=== PATIENT | female | born 2000 | race Hispanic/Latino ===

== ENCOUNTER 2022-09-22 06:41 | Inpatient (IN) | payer MEDICAID, OTHER, SELFPAY ==
[2022-09-22] MEDS ORDERED: Fentanyl 100 MCG/2 ML VIAL SLOW IVP PRN (07:28)
[2022-09-22] MEDS ORDERED: HYDROcodone/Acetaminophen 5/325 mg Tablet PO PRN ×2 (07:28)
[2022-09-22] MEDS ORDERED: Lidocaine 1% (PF) 30 ML VIAL SC PRN (07:28)
[2022-09-22] MEDS ORDERED: Promethazine HCl 25 MG/ML VIAL IM PRN ×2 (07:28→10:42)
[2022-09-22] MEDS ORDERED: Ondansetron PF 4 MG/2 ML Vial IVP PRN ×3 (07:28→22:20)
[2022-09-22] MEDS ORDERED: Diphenoxylate HCl/Atropine Tablet PO PRN ×2 (07:28)
[2022-09-22] MEDS ORDERED: Acetaminophen 500 MG TAB PO PRN (07:28)
[2022-09-22] MEDS ORDERED: Ibuprofen 800 MG TAB PO PRN (07:28)
[2022-09-22] MEDS ORDERED: Carboprost 250 MCG/ML AMP IM PRN (07:28)
[2022-09-22] MEDS ORDERED: Tranexamic Acid 1,000 MG/10 ML VIAL IVP PRN (07:28)
[2022-09-22] MEDS ORDERED: Misoprostol 200 MCG TAB PR PRN (07:28)
[2022-09-22] MEDS ORDERED: hydrALAZINE 20 MG/ML VIAL SLOW IVP PRN ×2 (07:28→22:20)
[2022-09-22] MEDS ORDERED: Methylergonovine 0.2 MG/ML VIAL IM PRN (07:28)
[2022-09-22] MEDS ORDERED: Lactated Ringer's 1,000 ML IV SCH (07:30)
[2022-09-22] MEDS ORDERED: NS w/ Oxytocin 30 units 500 ML IV SCH (07:30)
[2022-09-22] MEDS ORDERED: Misoprostol 100 MCG TAB VAG SCH (07:30)
[2022-09-22 07:46] VITALS: BMI 32.2
[2022-09-22] MEDS ORDERED: Bupivacaine 0.25% HCL 30 ML VIAL ONE (08:00)
[2022-09-22 08:10] LABS: Hemoglobin 10.9 g/dL (12.0-15.5); Mean Corpuscular HGB CONC 31.9 g/dL (32.0-36.0); Mean Corpuscular Hemoglobin 24.8 pg (27.0-33.0); Mean Corpuscular Volume 77.7 fl (81.6-98.3); Mean Platelet Volume 9.3 fl (7.4-10.4); Platelet Count 380 10x3/uL (150-450); RBC Distribution Width 15.7 % (11.5-14.5); White Blood Cell (WBC) Count 13.3 10x3/uL (3.5-10.5)
[2022-09-22 08:41] LABS: Syphilis Antibody Nonreactive (Nonreactive); Syphilis Antibody Index 0.03 S/CO (<1.00 Non-Reactive)
[2022-09-22 08:42] LABS: HBSAg Index 0.23 S/CO (0-0.99); Hep B Surf Ag - L&D Non-Reactive S/CO (NonReactive)
[2022-09-22] MEDS ORDERED: Fentanyl 2 mcg/Bup 0.1% Cadd 100 ML ONE ×2 (09:21→17:25)
[2022-09-22] MEDS ORDERED: Acetaminophen 325 MG TAB PO PRN (10:42)
[2022-09-22] MEDS ORDERED: Naloxone HCl 0.4 mg/ml Vial IVP PRN ×2 (10:42)
[2022-09-22] MEDS ORDERED: ePHEDrine Sulfate 50 MG/10 ML VIAL SLOW IVP PRN (10:42)
[2022-09-22] MEDS ORDERED: Moisturizing Cream (Eucerin) 113 GM JAR TOP PRN (10:42)
[2022-09-22] MEDS ORDERED: Lactated Ringer's 500 ML IV PRN (10:42)
[2022-09-22] MEDS ORDERED: diphenhydrAMINE 50 MG/ML VIAL IVP PRN (10:42)
[2022-09-22] MEDS ORDERED: Fentanyl 2 mcg/Bupivacaine 0.1% Cassette 100 ML EPIDURAL SCH (10:45)
[2022-09-22] MEDS ORDERED: Communication Order-Pharmacy FS SCH (10:45)
[2022-09-22] MEDS ORDERED: Lidocaine 1% (PF) 30 ML VIAL ONE (19:57)
[2022-09-22] MEDS ORDERED: diphenhydrAMINE 25 MG CAP PO PRN (22:20)
[2022-09-22] MEDS ORDERED: Boostrix 0.5 ML (Tdap) VIAL (>/=7 yrs of age) IM ONE (22:20)
[2022-09-22] MEDS ORDERED: Lanolin Ointment 7 GM TUBE TOP PRN (22:20)
[2022-09-22] MEDS ORDERED: Bisacodyl 10 MG SUPP PR PRN (22:20)
[2022-09-22] MEDS ORDERED: Benzocaine-Menthol 82.5 ML CAN TOP PRN (22:20)
[2022-09-22] MEDS ORDERED: Milk Of Magnesia 30 ML UDCUP PO PRN (22:20)
[2022-09-22] MEDS: Ibuprofen 800 MG TAB PO SCH (22:24)
[2022-09-22] MEDS ORDERED: Docusate 100 MG CAP PO SCH (22:30)
[2022-09-22] MEDS: HYDROcodone/Acetaminophen 5/325 mg Tablet PO PRN (22:39)
[2022-09-23] MEDS: HYDROcodone/Acetaminophen 5/325 mg Tablet PO PRN ×3 (03:25→19:43)
[2022-09-23] MEDS: Ibuprofen 800 MG TAB PO SCH ×3 (06:07→22:05)
[2022-09-23] MEDS: Ferrous Sulfate 325 MG TAB PO SCH ×2 (08:24→16:46)
[2022-09-23] MEDS: Prenatal Vitamin 1 TAB PO SCH (08:49)
[2022-09-23] MEDS: Docusate 100 MG CAP PO SCH ×2 (08:50→19:43)
[2022-09-24] MEDS: Ibuprofen 800 MG TAB PO SCH ×2 (06:02→14:17)
[2022-09-24 07:22] VITALS: BP 107/69; TEMP 97.5
[2022-09-24] MEDS: Ferrous Sulfate 325 MG TAB PO SCH ×2 (07:40→18:21)
[2022-09-24] MEDS: Docusate 100 MG CAP PO SCH (08:26)
[2022-09-24] MEDS: Prenatal Vitamin 1 TAB PO SCH (08:26)
[2022-09-24] MEDS: HYDROcodone/Acetaminophen 5/325 mg Tablet PO PRN (08:26)
== END 2022-09-24 20:00 | disposition home or self-care (01) | DRG 806 ==
LOC: CSHLD/OP 06:41 → CSHLD 07:53 → CSHPP 22:09
PROVIDERS: ADMIT Family Medicine; ATTEND Family Medicine
PROC: 10E0XZZ Delivery of Products of Conception, External Approach (ICD-10-PCS; principal; 2022-09-22)
PROC: 0KQM0ZZ Repair Perineum Muscle, Open Approach (ICD-10-PCS; 2022-09-22)
PROC: 10H07YZ Insertion of Other Device into Products of Conception, Via Natural or Artificial Opening (ICD-10-PCS; 2022-09-22)
PROC: 0UQMXZZ Repair Vulva, External Approach (ICD-10-PCS; 2022-09-22)
DX: O42.02 Full-term premature rupture of membranes, onset of labor within 24 hours of rupture (principal); O71.4 Obstetric high vaginal laceration alone; Z37.0 Single live birth; O69.81X0 Labor and delivery complicated by cord around neck, without compression, not applicable or unspecified; Z3A.39 39 weeks gestation of pregnancy; Z79.899 Other long term (current) drug therapy; Z98.890 Other specified postprocedural states
CPT/HCPCS: 36415; 51702; 85027; 86780; 86850; 86900; 86901; 87340; J2001; J2590; J3010; S0020